=== PATIENT | male | born 1985 | race Caucasian/White ===

== ENCOUNTER 2025-01-01 10:47 | Inpatient (IN) | payer SELFPAY ==
[~2025-01-01] VITALS: Ht 185.4 cm; Wt 196.0 kg
[2025-01-01] VITALS (17 sets, daily range): BP systolic 125–153; BP diastolic 83–119; PULSE 85–135; RESP 16–30; TEMP 97.9–98.7; O2SAT 95–99
[2025-01-01 12:01] LABS: BASOPHILS # (AUTO) 0.1 (0.0-0.1); BASOPHILS % 0.6 % (0.0-1.0); EOSINOPHILS # (AUTO) 0.2 (0.0-0.4); EOSINOPHILS % 2.4 % (0.0-6.0); HEMATOCRIT 42.6 % (38.2-49.6); HEMOGLOBIN 14.2 g/dL (14.0-18.0); LYMPHOCYTES # (AUTO) 1.7 (1.0-3.2); LYMPHOCYTES % 21.6 % (18.0-39.1); MEAN CORPUSCULAR HGB CONC 33.3 g/dL (31-35); MEAN CORPUSCULAR VOLUME 99.1 fL (81-99); MONOCYTES # (AUTO) 0.8 (0.2-0.8); MONOCYTES % 9.3 % (4.4-11.3); NEUTROPHILS # (AUTO) 5.3 (2.1-6.9); NEUTROPHILS % 65.6 % (38.7-80.0); PLATELET COUNT 260 x10e3/uL (140-360); RED CELL DISTRIBUTION WIDTH 13.8 % (11.7-14.4); WHITE BLOOD COUNT 8.06 x10e3/uL (4.8-10.8)
[2025-01-01] MEDS: ASPIRIN 81 MG CHEW TAB PO ONE (12:01)
[2025-01-01] MEDS: DILTIAZEM HCL 5 MG/ML 5 ML VIAL IV STA (12:01)
[2025-01-01] MEDS: ENOXAPARIN 30 MG/0.3 ML SYR SC STA (12:01)
[2025-01-01] MEDS: ENOXAPARIN SODIUM INJ 100 MG/ML SYR SC STA (12:02)
[2025-01-01 12:17] LABS: INR 0.93; PARTIAL THROMBOPLASTIN TIME 19.3 seconds (23.8-35.5)
[2025-01-01 12:24] LABS: ALBUMIN 3.5 g/dL (3.5-5.0); ALBUMIN/GLOBULIN RATIO 1.4 (0.8-2.0); ANION GAP 14.3 mmol/L (8-16); BILIRUBIN,TOTAL 0.5 mg/dL (0.2-1.2); CALCIUM 9.1 mg/dL (8.4-10.2); CREATININE, SERUM 0.97 mg/dL (0.72-1.25); MAGNESIUM 1.8 MG/DL (1.3-2.1); POTASSIUM 4.3 mmol/L (3.5-5.1)
[2025-01-01 12:44] LABS: THYROID STIMULATING HORMONE 2.584 uIU/mL (0.350-4.940); TROPONIN I 0.008 ng/mL (0-0.300)
[2025-01-01] MEDS: DILTIAZEM HCL IV SOLN 125 MG in SODIUM CHLORIDE 0.9% 100 ML IV SCH (13:25)
[2025-01-01] MEDS ORDERED: ONDANSETRON HCL INJ 2MG/ML 2ML 2 MG/ML VIAL IV PRN (14:00)
[2025-01-01] MEDS ORDERED: Morphine 2mg Syringe 2 MG/ML SYR IV PRN (14:00)
[2025-01-01] MEDS ORDERED: LABETALOL HCL 5 MG/ML 20ML VIAL IV PRN (14:45)
[2025-01-01] MEDS ORDERED: AMIODARONE 900MG 900 MG in Premix Bag 1 BAG IV SCH (17:00)
[2025-01-01] MEDS ORDERED: AMIODARONE HCL 150 MG/100 ML BAG IV ONE (17:00)
[2025-01-01] MEDS: METOPROLOL SUCCINATE 25 MG TAB XL PO SCH (18:31)
[2025-01-01] MEDS: AMIODARONE HCL 150 MG/100 ML BAG IV ONE (18:32)
[2025-01-01] MEDS: AMIODARONE 900MG 900 MG in Premix Bag 1 BAG IV SCH (18:33)
[2025-01-01] MEDS ORDERED: HYDROCHLOROTH12.5 MG PO (20:07)
[2025-01-01] MEDS ORDERED: LISINOPRIL20 MG PO (20:07)
[2025-01-01] MEDS: ENOXAPARIN SODIUM INJ 100 MG/ML SYR SC SCH (20:50)
[2025-01-01] MEDS ORDERED: ENOXAPARIN 30 MG/0.3 ML SYR SC SCH (23:00)
[2025-01-01] MEDS ORDERED: ENOXAPARIN SODIUM INJ 100 MG/ML SYR SC SCH (23:00)
[2025-01-02] VITALS (28 sets, daily range): BP systolic 118–155; BP diastolic 81–123; PULSE 54–165; RESP 7–27; TEMP 97.7–98.6; O2SAT 87–100
[2025-01-02] MEDS: TEMAZEPAM 7.5 MG CAP PO PRN (01:03)
[2025-01-02 06:25] LABS: BASOPHILS # (AUTO) 0.1 (0.0-0.1); BASOPHILS % 0.9 % (0.0-1.0); EOSINOPHILS # (AUTO) 0.2 (0.0-0.4); EOSINOPHILS % 1.9 % (0.0-6.0); HEMATOCRIT 43.4 % (38.2-49.6); HEMOGLOBIN 13.9 g/dL (14.0-18.0); LYMPHOCYTES # (AUTO) 1.7 (1.0-3.2); LYMPHOCYTES % 18.7 % (18.0-39.1); MEAN CORPUSCULAR VOLUME 103.1 fL (81-99); MONOCYTES # (AUTO) 0.9 (0.2-0.8); MONOCYTES % 10.1 % (4.4-11.3); NEUTROPHILS % 67.7 % (38.7-80.0); PLATELET COUNT 227 x10e3/uL (140-360); RED BLOOD COUNT 4.21 x10e6/uL (4.3-5.7); RED CELL DISTRIBUTION WIDTH 13.2 % (11.7-14.4); WHITE BLOOD COUNT 8.91 x10e3/uL (4.8-10.8)
[2025-01-02] MEDS: ACETAMINOPHEN 325 MG TAB PO PRN (06:33)
[2025-01-02 06:57] LABS: ALBUMIN 3.6 g/dL (3.5-5.0); ALBUMIN/GLOBULIN RATIO 1.5 (0.8-2.0); ANION GAP 12.6 mmol/L (8-16); BILIRUBIN,TOTAL 0.7 mg/dL (0.2-1.2); CHOL/HDL RATIO 4.7 (3.9-4.7); CREATININE, SERUM 0.91 mg/dL (0.72-1.25); POTASSIUM 4.6 mmol/L (3.5-5.1)
[2025-01-02 07:04] LABS: B-TYPE NATRIURETIC PEPTIDE2 244.9 pg/mL (0-100)
[2025-01-02 07:17] LABS: FREE THYROXINE INDEX 1.7907 (1.4-3.8); T3 UPTAKE 28.93 % (22.5-37.0); T4 (THYROXINE) 6.19 ug/dL (4.5-10.9); THYROID STIMULATING HORMONE 1.457 uIU/mL (0.350-4.940)
[2025-01-02 07:25] LABS: TROPONIN I 0.014 ng/mL (0-0.300)
[2025-01-02] MEDS: LISINOPRIL 20 MG TAB PO SCH (08:49)
[2025-01-02] MEDS: HYDROCHLOROTHIAZIDE 25 MG TAB PO SCH (08:50)
[2025-01-02 15:29] LABS: TROPONIN I 0.011 ng/mL (0-0.300)
[2025-01-02] MEDS: CHLORDIAZEPOXIDE HCL 25 MG CAP PO PRN (18:44)
[2025-01-02] MEDS: METOPROLOL SUCCINATE 25 MG TAB XL PO ONE (18:54)
[2025-01-02] MEDS: AMIODARONE HCL 200 MG TAB PO SCH (18:56)
[2025-01-02] MEDS: AMIODARONE HCL 200 MG TAB ONE (19:24)
[2025-01-02] MEDS: METOPROLOL SUCCINATE 25 MG TAB XL ONE (19:24)
[2025-01-03] VITALS (24 sets, daily range): BP systolic 84–148; BP diastolic 66–102; PULSE 25–202; RESP 13–28; TEMP 97.9–98.4; O2SAT 94–99
[2025-01-03] MEDS ORDERED: TEMAZEPAM 15 MG CAP PO PRN (07:30)
[2025-01-03] MEDS: METOPROLOL SUCCINATE 50 MG TAB XL PO SCH (08:56)
[2025-01-03] MEDS ORDERED: METOPROLOL SUCCINATE 50 MG TAB XL PO SCH (09:00)
[2025-01-04] VITALS (9 sets, daily range): BP systolic 101–153; BP diastolic 63–111; PULSE 64–118; RESP 16–20; TEMP 97.4–98.2; O2SAT 93–100
[2025-01-04 06:16] LABS: BASOPHILS % 0.5 % (0.0-1.0); EOSINOPHILS # (AUTO) 0.2 (0.0-0.4); EOSINOPHILS % 2.7 % (0.0-6.0); HEMATOCRIT 41.8 % (38.2-49.6); HEMOGLOBIN 13.2 g/dL (14.0-18.0); LYMPHOCYTES # (AUTO) 1.8 (1.0-3.2); LYMPHOCYTES % 21.1 % (18.0-39.1); MEAN CORPUSCULAR HEMOGLOBIN 32.2 pg (28-32); MEAN CORPUSCULAR HGB CONC 31.6 g/dL (31-35); MONOCYTES # (AUTO) 0.8 (0.2-0.8); MONOCYTES % 9.9 % (4.4-11.3); NEUTROPHILS # (AUTO) 5.6 (2.1-6.9); NEUTROPHILS % 65.3 % (38.7-80.0); PLATELET COUNT 223 x10e3/uL (140-360); RED CELL DISTRIBUTION WIDTH 13.1 % (11.7-14.4)
[2025-01-04 06:47] LABS: ANION GAP 14.2 mmol/L (8-16); CALCIUM 9.2 mg/dL (8.4-10.2); CREATININE, SERUM 0.91 mg/dL (0.72-1.25); POTASSIUM 4.2 mmol/L (3.5-5.1)
[2025-01-05] VITALS (7 sets, daily range): BP systolic 119–144; BP diastolic 81–96; PULSE 87–118; RESP 16–20; TEMP 97.8–98.6; O2SAT 95–100
[2025-01-05] MEDS ORDERED: OMEPRAZOLE40 MG PO (20:58)
[2025-01-05] MEDS ORDERED: TOPROL XL50 MG PO (20:58)
[2025-01-05] MEDS ORDERED: AMIODARONE HCL200 MG PO (20:58)
[2025-01-05] MEDS ORDERED: ELIQUIS5 MG PO (20:58)
[2025-01-09] MEDS ORDERED: AMIODARONE HCL 200 MG TAB PO SCH (17:00)
== END 2025-01-05 22:10 | disposition home or self-care (01) | DRG 291 ==
LOC: ER 11:06 → ERHOLD 14:08 → ICU 14:32 → MED/SURG 01-03 15:16 → MED/SURG3 01-03 22:13
PROVIDERS: ADMIT Internal Medicine; ATTEND Internal Medicine
DX: I11.0 Hypertensive heart disease with heart failure (principal); I50.43 Acute on chronic combined systolic (congestive) and diastolic (congestive) heart failure; Z68.43 Body mass index [BMI] 50.0-59.9, adult; I48.91 Unspecified atrial fibrillation; F17.200 Nicotine dependence, unspecified, uncomplicated; E66.01 Morbid (severe) obesity due to excess calories; R79.89 Other specified abnormal findings of blood chemistry; G47.33 Obstructive sleep apnea (adult) (pediatric); F10.10 Alcohol abuse, uncomplicated; E88.810 Metabolic syndrome
CPT/HCPCS: 36415; 71045; 80048; 80053; 80061; 82550; 83036; 83735; 83880; 84436; 84443; 84479; 84484; 85025; 85610; 85730; 93005; 93306; 93971; 94799; 99252; 99284; J1650; J7050